=== PATIENT | male | born 1970 | race Caucasian/White ===

== ENCOUNTER 2019-12-04 08:53 | Emergency (ER) | payer MEDICAID ==
--- NOTE | 2019-12-04 09:36 | ED ---
Extremity Problem HPI - General Source: patient Mode of arrival: ambulatory Limitations: no limitations <Vladislav Mir - Last Filed: 12/04/19 10:52> <Lalita Carmichael - Last Filed: 12/06/19 22:05> - General Chief complaint: Extremity Problem,Nontraumatic Stated complaint: Swollen left leg/foot Time Seen by Provider: 12/04/19 09:17 - History of Present Illness Initial comments: Patient is a 49-year-old male with history of diabetes presenting to emergency Department with a chief complaint of leg swelling. Patient reports he noticed mild leg swelling on his left lower sternal yesterday. He states he made sure to keep the foot elevated. He woke up this morning and states the swelling did not resolve. Patient does report some fullness near his toes. Patient denies diabetic neuropathy and gets regular checks. Patient denies any trauma to the region. Denies shortness of breath, chest pain or hemoptysis. Patient denies hematologic conditions. (Vladislav Mir) - Related Data Home Medications Medication Instructions Recorded Confirmed Pioglitazone [Actos] 15 mg PO DAILY 10/19/19 10/19/19 metFORMIN HCL [Glucophage] 1,000 mg PO BID 10/19/19 10/19/19 Previous Rx's Medication Instructions Recorded Metoclopramide [Reglan] 10 mg PO ACHS #10 tab 07/05/15 Allergies Allergy/AdvReac Type Severity Reaction Status Date / Time No Known Allergies Allergy Verified 12/04/19 08:57 Review of Systems ROS Other: All systems not noted in ROS Statement are negative. <Vladislav Mir - Last Filed: 12/04/19 10:52> ROS Other: All systems not noted in ROS Statement are negative. <Lalita Carmichael - Last Filed: 12/06/19 22:05> ROS Statement: Those systems with pertinent positive or pertinent negative responses have been documented in the HPI. Past Medical History Past Medical History: Diabetes Mellitus, Hyperlipidemia, Hypertension History of Any Multi-Drug Resistant Organisms: None Reported Past Surgical History: No Surgical Hx Reported Past Psychological History: No Psychological Hx Reported Smoking Status: Former smoker Past Alcohol Use History: Rare Past Drug Use History: None Reported <Vladislav Mir - Last Filed: 12/04/19 10:52> General Exam Limitations: no limitations General appearance: alert, in no apparent distress Head exam: Present: atraumatic, normocephalic, normal inspection Eye exam: Present: normal appearance, PERRL, EOMI Pupils: Present: normal accommodation ENT exam: Present: normal exam, mucous membranes moist Neck exam: Present: normal inspection, full ROM Respiratory exam: Present: normal lung sounds bilaterally Cardiovascular Exam: Present: regular rate, normal rhythm, normal heart sounds Extremities exam: Present: full ROM, normal capillary refill, pedal edema (+1 nonpitting edema left lower extremity.), calf tenderness (Very mild tenderness), other (+2 dorsalis pedis and posterior tibialis bilaterally.). Absent: normal inspection (Left-sided leg swelling. No trauma to the region. No erythema or skin discoloration.), tenderness Back exam: Present: normal inspection, full ROM Neurological exam: Present: alert, oriented X3 Psychiatric exam: Present: normal affect, normal mood Skin exam: Present: warm, dry, intact, normal color <Vladislav Mir - Last Filed: 12/04/19 10:52> Course Vital Signs 12/04/19 12/04/19 08:58 10:38 Temperature 98.1 F 98.0 F Pulse Rate 89 77 Respiratory 18 16 Rate Blood Pressure 149/95 124/87 O2 Sat by Pulse 100 99 Oximetry Medical Decision Making <Vladislav Mir - Last Filed: 12/04/19 10:52> <Lalita Carmichael - Last Filed: 12/06/19 22:05> - Medical Decision Making Patient is a 49-year-old male with type 2 diabetes presenting to emergency Department with chief complaint of leg swelling. Patient is otherwise a healthy person. No ciliary changes on the left thoracotomy. +1 nonpitting edema. No trauma to the region. Patient does stand for prolonged periods of time at his job. Doppler ultrasound left lower extremity is negative for DVT. Patient advised to keep leg elevated above heart level and wear compression stockings. Patient denies hematologic conditions. No chest pain, shortness of breath or he moptysis. Patient advised to obtain a repeat ultrasound in 1 week. He was advised to follow up primary care. Strict return parameters were thoroughly discussed the patient was understanding and agreeable. Case discussed with physician. (Vladislav Mir) I was available for consultation in the emergency department. The history and physical exam were done by the midlevel provider. I was consulted for this patients care. I reviewed the case with the midlevel provider and based on their presentation of the patient, I agree with the assessment, medical decision making and plan of care as documented. Chart was dictated using [employer] dictation software. Attempts were made to correct any dictation errors however some typographical errors may persist. (Lalita Carmichael) Disposition Is patient prescribed a controlled substance at d/c from ED?: No Time of Disposition: 10:56 <Vladislav Mir - Last Filed: 12/04/19 10:52> <Lalita Carmichael - Last Filed: 12/06/19 22:05> Clinical Impression: Swelling of lower extremity Disposition: HOME SELF-CARE Condition: Stable Instructions (If sedation given, give patient instructions): Leg Edema (ED) Additional Instructions: Please follow up with primary care. Obtain a repeat ultrasound in 1 week. Return to emergency department if symptoms worsen. Referrals: Rocio Watson MD [Primary Care Provider] - 1-2 days
--- NOTE | 2019-12-04 10:20 | US ---
EXAMINATION TYPE: US venous doppler duplex LE LT DATE OF EXAM: 12/04/2019 9:30 AM COMPARISON: NONE CLINICAL HISTORY: unilat swelling. SIDE PERFORMED: Left TECHNIQUE: The lower extremity deep venous system is examined utilizing real time linear array sonog dolly with graded compression, doppler sonography and color-flow sonography. VESSELS IMAGED: External Iliac Vein (EIV) Common Femoral Vein Deep Femoral Vein Greater Saphenous Vein * Femoral Vein Popliteal Vein Small Saphenous Vein * Proximal Calf Veins (* superficial vessels) There is normal flow, compressibility, vascular waveforms. Left Leg: Negative for DVT IMPRESSION: No evident deep venous thrombosis at or above the left knee
[2019-12-04 10:39] VITALS: BP 124/87; PULSE 77; RESP 16; TEMP 98
== END 2019-12-04 11:05 | disposition home or self-care (01) ==
LOC: EC 08:53
DX: M79.89 Other specified soft tissue disorders (principal); E11.9 Type 2 diabetes mellitus without complications; Z87.891 Personal history of nicotine dependence; Z79.84 Long term (current) use of oral hypoglycemic drugs
CPT/HCPCS: 99283

== ENCOUNTER → 2020-09-06 | Outpatient (CLI) | payer MEDICAID ==
--- NOTE | 2020-09-06 10:07 | US ---
EXAMINATION TYPE: US venous doppler duplex LE DATE OF EXAM: 09/06/2020 8:50 AM COMPARISON: US 2019 CLINICAL HISTORY: 50-year-old male R22.43 SWELLING OF BOTH LOWER LEGS, E11.65 TYPE II DIABETES. Bilat eral leg swelling x couple months SIDE PERFORMED: Bilateral TECHNIQUE: The lower extremity deep venous system is examined utilizing real time linear array sonog dolly with graded compression, doppler sonography and color-flow sonography. FINDINGS: VESSELS IMAGED: External Iliac Vein (EIV) Common Femoral Vein Deep Femoral Vein Greater Saphenous Vein * Femoral Vein Popliteal Vein Small Saphenous Vein * Proximal Calf Veins (* superficial vessels) Right Leg: Appears negative for DVT Left Leg: Appears negative for DVT IMPRESSION: No evidence for DVT within the bilateral lower extremities imaged from the groin to the upper calves.
== END | disposition home or self-care (01) ==
LOC: RADUSWWP 08:19
PROVIDERS: ATTEND Family Medicine
DX: R22.43 Localized swelling, mass and lump, lower limb, bilateral (principal); L81.9 Disorder of pigmentation, unspecified; E11.65 Type 2 diabetes mellitus with hyperglycemia
CPT/HCPCS: 93923; 93970

== ENCOUNTER 2022-09-03 15:49 | Emergency (ER) | payer MEDICAID ==
[2022-09-03 16:04] VITALS: RESP 16; TEMP 98
[2022-09-03 16:54] LABS: Basophils # (A) 0.1 k/uL (0-0.2); Basophils % (A) 0 %; Eosinophils # (A) 0.1 k/uL (0-0.7); Eosinophils % (A) 1 %; HCT 43.9 % (39.0-53.0); HGB 15.1 gm/dL (13.0-17.5); Lymphocytes # (A) 2.2 k/uL (1.0-4.8); Lymphocytes % (A) 20 %; MCH 31.6 pg (25.0-35.0); MCHC 34.3 g/dL (31.0-37.0); MCV 92.1 fL (80.0-100.0); Mean Platelet Volume 7.9; Monocytes # (A) 0.3 k/uL (0-1.0); Monocytes % (A) 3 %; Neutrophils # (A) 8.2 k/uL (1.3-7.7); Neutrophils % (A) 75 %; Platelet Count 196 k/uL (150-450); RBC 4.77 m/uL (4.30-5.90); RDW 13.2 % (11.5-15.5)
[2022-09-03 17:07] LABS: ALT 16 U/L (4-49); AST 19 U/L (17-59); African American GFR (CKD) >90 (>60 ml/min/1.73 sqM); Albumin 3.9 g/dL (3.5-5.0); Alkaline Phosphatase 57 U/L (38-126); Amylase 53 U/L (30-110); Anion Gap 11 mmol/L; Blood Urea Nitrogen 15 mg/dL (9-20); Calcium 9.1 mg/dL (8.4-10.2); Carbon Dioxide 25 mmol/L (22-30); Chloride 100 mmol/L (98-107); Glucose 257 mg/dL (74-99); Lipase 25 U/L (23-300); Non-African American GFR(CKD) >90 (>60 ml/min/1.73 sqM); Sodium 136 mmol/L (137-145); Total Bilirubin 0.5 mg/dL (0.2-1.3); Total Protein 6.5 g/dL (6.3-8.2)
[2022-09-03 17:11] LABS: Appearance,Urine Clear (Clear); Bilirubin,Urine Negative (Negative); Blood,Urine Negative (Negative); Color,Urine Yellow; Glucose,Urine (UA) 4+ (Negative); Ketones,Urine Negative (Negative); Leukocyte Esterase,Urine Negative (Negative); Nitrite,Urine Negative (Negative); PH, Urine 5.5 (5.0-8.0); Protein,Urine Negative (Negative); Specific Gravity,Urine 1.016 (1.001-1.035)
--- NOTE | 2022-09-03 17:37 | XR ---
KUB HISTORY: Abdominal pain Frontal KUB on 2 images correlated prior exam 07/05/2015 Lung bases are clear. There is no evident bowel obstruction or pneumoperitoneum. No pathologic calcif ication is evident, probable phleboliths in the pelvis. Bone mineralization is normal. There are some air-fluid levels without bowel distention. IMPRESSION: Findings could represent enteritis or ileus, follow-up as indicated.
[2022-09-03] MEDS ORDERED: KETOROLAC 15 MG/ML 1 ML VIAL IM STA (17:49)
--- NOTE | 2022-09-03 17:55 | ED ---
Abdominal Pain HPI - General Chief Complaint: Abdominal Pain Stated Complaint: Lower back pain Time Seen by Provider: 09/03/22 17:43 Source: patient, RN notes reviewed Mode of arrival: ambulatory Limitations: no limitations - History of Present Illness Initial Comments: Patient is a pleasant 52-year-old male presenting to the emergency room with complaints of right upper flank pain in the area of his lower rib cage. He reports symptoms similar and ongoing for 1 week and have become severe enough that he was unable to tolerate the symptoms any further. He denies any associated symptoms with the pain including any chest pain, shortness of breath, cough, nausea, vomiting, diarrhea, constipation, hematuria, dysuria, urinary frequency, fevers or chills. He denies any injuries or range of motion impairment. He has a past medical history significant for diabetes, hypertension, and hyperlipidemia. - Related Data Home Medications Medication Instructions Recorded Confirmed Pioglitazone [Actos] 15 mg PO DAILY 10/19/19 10/19/19 metFORMIN HCL [Glucophage] 1,000 mg PO BID 10/19/19 10/19/19 Previous Rx's Medication Instructions Recorded Metoclopramide [Reglan] 10 mg PO ACHS #10 tab 07/05/15 Cyclobenzaprine [Flexeril] 10 mg PO TID #12 tab 06/13/20 Ibuprofen [Motrin] 600 mg PO Q6HR PRN #20 tab 06/13/20 Allergies Allergy/AdvReac Type Severity Reaction Status Date / Time No Known Allergies Allergy Verified 09/03/22 16:04 Review of Systems ROS Statement: Those systems with pertinent positive or pertinent negative responses have been documented in the HPI. ROS Other: All systems not noted in ROS Statement are negative. Past Medical History Past Medical History: Diabetes Mellitus, Hyperlipidemia, Hypertension History of Any Multi-Drug Resistant Organisms: None Reported Past Surgical History: No Surgical Hx Reported Past Psychological History: No Psychological Hx Reported Smoking Status: Current every day smoker Past Alcohol Use History: Rare Past Drug Use History: None Reported General Exam Limitations: no limitations General appearance: alert, in no apparent distress Head exam: Present: atraumatic, normocephalic, normal inspection Eye exam: Present: normal appearance, PERRL, EOMI. Absent: scleral icterus, conjunctival injection, periorbital swelling ENT exam: Present: normal exam, mucous membranes moist Neck exam: Present: normal inspection. Absent: lymphadenopathy Respiratory exam: Present: normal lung sounds bilaterally. Absent: respiratory distress, wheezes, rales, rhonchi, stridor Cardiovascular Exam: Present: regular rate, normal rhythm, normal heart sounds. Absent: systolic murmur, diastolic murmur, rubs, gallop, clicks GI/Abdominal exam: Present: soft, tenderness (RUQ), normal bowel sounds. A bsent: distended, guarding, rebound, rigid, organomegaly, mass Rectal exam: Present: deferred Extremities exam: Present: normal inspection Back exam: Present: normal inspection. Absent: CVA tenderness (R), CVA tenderness (L) Neurological exam: Present: alert, oriented X3, CN II-XII intact Psychiatric exam: Present: normal affect, normal mood Skin exam: Present: warm, dry, intact, normal color. Absent: rash Course Vital Signs 09/03/22 09/03/22 16:01 18:44 Temperature 98 F Pulse Rate 80 65 Respiratory 16 16 Rate Blood Pressure 151/100 137/97 O2 Sat by Pulse 99 100 Oximetry Medical Decision Making - Medical Decision Making 52-year-old male presenting to the emergency room with right upper flank pain at the upper limits of the costal vertebral angle. Right upper quadrant tenderness noted. In triage KUB, CBC, CMP, amylase, lipase and urinalysis ordered. Will give Toradol for pain. KUB findings showed some air fluid levels without bowel distention which could represent enteritis or ileus and follow-up as indicated. Computed tomography scan of the abdomen without contrast was ordered. CBC shows mild leukocytosis at 11.0 no other anomalies. CMP revealed slightly low sodium at 136 and elevated glucose at 257. Urinalysis overall was negative with the exception of plus for glucose. Pain improved with Toradol. Computed tomography scan shows enteritis and cholelithiasis. Will discharge home. Education regarding cholelithiasis reviewed. Return parameters to the emergency room reviewed at length. Case discussed with Dr. Carmichael. - Lab Data Result diagrams: 09/03/22 16:31 09/03/22 16:31 Lab Results 09/03/22 09/03/22 09/03/22 Range/Units 16:31 16:31 16:31 WBC 11.0 H (3.8-10.6) k/uL RBC 4.77 (4.30-5.90) m/uL Hgb 15.1 (13.0-17.5) gm/dL Hct 43.9 (39.0-53.0) % MCV 92.1 (80.0-100.0) fL MCH 31.6 (25.0-35.0) pg MCHC 34.3 (31.0-37.0) g/dL RDW 13.2 (11.5-15.5) % Plt Count 196 (150-450) k/uL MPV 7.9 Neutrophils % 75 % Lymphocytes % 20 % Monocytes % 3 % Eosinophils % 1 % Basophils % 0 % Neutrophils # 8.2 H (1.3-7.7) k/uL Lymphocytes # 2.2 (1.0-4.8) k/uL Monocytes # 0.3 (0-1.0) k/uL Eosinophils # 0.1 (0-0.7) k/uL Basophils # 0.1 (0-0.2) k/uL Sodium 136 L (137-145) mmol/L Potassium 4.0 (3.5-5.1) mmol/L Chloride 100 (98-107) mmol/L Carbon Dioxide 25 (22-30) mmol/L Anion Gap 11 mmol/L BUN 15 (9-20) mg/dL Creatinine 0.57 L (0.66-1.25) mg/dL Est GFR (CKD-EPI)AfAm >90 (>60 ml/min/1.73 sqM) Est GFR (CKD-EPI)NonAf >90 (>60 ml/min/1.73 sqM) Glucose 257 H (74-99) mg/dL Calcium 9.1 (8.4-10.2) mg/dL Total Bilirubin 0.5 (0.2-1.3) mg/dL AST 19 (17-59) U/L ALT 16 (4-49) U/L Alkaline Phosphatase 57 (38-126) U/L Troponin I <0.012 (0.000-0.034) ng/mL Total Protein 6.5 (6.3-8.2) g/dL Albumin 3.9 (3.5-5.0) g/dL Amylase 53 (30-110) U/L Lipase 25 (23-300) U/L Urine Color Urine Appearance (Clear) Urine pH (5.0-8.0) Ur Specific [place] (1.001-1.035) Urine Protein (Negative) Urine Glucose (UA) (Negative) Urine Ketones (Negative) Urine Blood (Negative) Urine Nitrite (Negative) Urine Bilirubin (Negative) Urine Urobilinogen (<2.0) mg/dL Ur Leukocyte Esterase (Negative) 09/03/22 Range/Units 16:50 WBC (3.8-10.6) k/uL RBC (4.30-5.90) m/uL Hgb (13.0-17.5) gm/dL Hct (39.0-53.0) % MCV (80.0-100.0) fL MCH (25.0-35.0) pg MCHC (31.0-37.0) g/dL RDW (11.5-15.5) % Plt Count (150-450) k/uL MPV Neutrophils % % Lymphocytes % % Monocytes % % Eosinophils % % Basophils % % Neutrophils # (1.3-7.7) k/uL Lymphocytes # (1.0-4.8) k/uL Monocytes # (0-1.0) k/uL Eosinophils # (0-0.7) k/uL Basophils # (0-0.2) k/uL Sodium (137-145) mmol/L Potassium (3.5-5.1) mmol/L Chloride (98-107) mmol/L Carbon Dioxide (22-30) mmol/L Anion Gap mmol/L BUN (9-20) mg/dL Creatinine (0.66-1.25) mg/dL Est GFR (CKD-EPI)AfAm (>60 ml/min/1.73 sqM) Est GFR (CKD-EPI)NonAf (>60 ml/min/1.73 sqM) Glucose (74-99) mg/dL Calcium (8.4-10.2) mg/dL Total Bilirubin (0.2-1.3) mg/dL AST (17-59) U/L ALT (4-49) U/L Alkaline Phosphatase (38-126) U/L Troponin I (0.000-0.034) ng/mL Total Protein (6.3-8.2) g/dL Albumin (3.5-5.0) g/dL Amylase (30-110) U/L Lipase (23-300) U/L Urine Color Yellow Urine Appearance Clear (Clear) Urine pH 5.5 (5.0-8.0) Ur Specific [place] 1.016 (1.001-1.035) Urine Protein Negative (Negative) Urine Glucose (UA) 4+ H (Negative) Urine Ketones Negative (Negative) Urine Blood Negative (Negative) Urine Nitrite Negative (Negative) Urine Bilirubin Negative (Negative) Urine Urobilinogen 2.0 (<2.0) mg/dL Ur Leukocyte Esterase Negative (Negative) - Radiology Data Radiology results: report reviewed, image reviewed KUB shows probable phleboliths in the pelvis. Normal bone mineralization. Some air-fluid levels without bowel dilation patient, findings could represent enteritis or ileus follow-up is recommended. CT the abdomen and pelvis impression correlate for enteritis and cholelithiasis, liver gallbladder dependent high attenuation within the gallbladder consistent with gallstones. Bowel shows between small bowel loops no free air is visible. Disposition Clinical Impression: Enteritis, Cholelithiasis without obstruction Disposition: HOME SELF-CARE Condition: Stable Instructions (If sedation given, give patient instructions): Gastroenteritis (ED), Gallstones (ED), Low Fat Diet (ED) Additional Instructions: Please follow-up with your primary care provider. Low-fat diet is recommended. Please take Tylenol or ibuprofen as needed for pain. Please return to the Emergency Department if symptoms worsen or any other concerns. Is patient prescribed a controlled substance at d/c from ED?: No Referrals: Rocio Watson MD [STAFF PHYSICIAN] - 1-2 days Time of Disposition: 19:37
--- NOTE | 2022-09-03 18:25 | CT ---
EXAMINATION TYPE: CT abdomen pelvis wo con DATE OF EXAM: 09/03/2022 COMPARISON: CT 06/13/2020 HISTORY: right flank pain CT DLP: 433.8 mGycm Automated exposure control for dose reduction was used. TECHNIQUE: Helical acquisition of images from the lung bases through the pelvis. FINDINGS: Lack of intravenous contrast could N sensitivity of the exam. LUNG BASES: No significant abnormality is appreciated. AORTA: No significant abnormality is appreciataed. LIVER/GB: Dependent high attenuation within the gallbladder is consistent with gallstone. Liver shows no mass. PANCREAS: No significant abnormality is seen. SPLEEN: No significant abnormality is seen. ADRENALS: No significant abnormality is seen. KIDNEYS: Suspect changes of medullary sponge kidney. No evident hydronephrosis or ureteral calculus. REPRODUCTIVE ORGANS: Prostate is enlarged. URINARY BLADDER: Not distended, wall thickening could be due to chronic outlet obstruction, lack of distention, correlate to exclude cystitis. Multiple phleboliths are present within the pelvis. BOWEL: Thickened small bowel loops are noted. FREE AIR: No Free Air is visible. ASCITES: None visible. PELVIC ADENOPATHY: None visualized. RETROPERITONEAL ADENOPATHY: No Retroperitoneal Adenopathy visible. OSSEOUS STRUCTURES: Degenerative disc changes are present visualized spine.. IMPRESSION: CORRELATE FOR ENTERITIS. NONCONTRAST EXAM. CHOLELITHIASIS. ADDITIONAL NONSPECIFIC FINDINGS ABOVE.
[2022-09-03 18:45] VITALS: BP 137/97; PULSE 65
== END 2022-09-03 19:40 | disposition home or self-care (01) ==
LOC: EC 15:49
DX: K80.20 Calculus of gallbladder without cholecystitis without obstruction (principal); K52.9 Noninfective gastroenteritis and colitis, unspecified; E11.9 Type 2 diabetes mellitus without complications; E78.5 Hyperlipidemia, unspecified; I10 Essential (primary) hypertension; Z79.84 Long term (current) use of oral hypoglycemic drugs; F17.200 Nicotine dependence, unspecified, uncomplicated
CPT/HCPCS: 80053; 82150; 83690; 84484; 85025; 74018; 74176; 99284; 96372; J1885; 36415; 81003

== ENCOUNTER → 2022-09-05 | Outpatient (CLI) | payer MEDICAID ==
[2022-09-05 18:01] LABS: ALT 14 U/L (10-49); AST 13 U/L (14-35); African American GFR (CKD) 120.7 (60.0-200.0); Albumin 4.2 g/dL (3.8-4.9); Albumin/Globulin Ratio 1.68 (1.60-3.17); Alkaline Phosphatase 67 U/L (41-126); BUN/Creat Ratio 14.38 Ratio (12.00-20.00); Blood Urea Nitrogen 11.5 mg/dL (9.0-27.0); Calcium 9.3 mg/dL (8.7-10.3); Carbon Dioxide 29.1 mmol/L (20.0-27.5); Chloride 103 mmol/L (96-109); Chol/HDL Ratio 3.54 Ratio; Globulin 2.5 g/dL (1.6-3.3); Glucose 295 mg/dL (70-110); LDL Cholesterol,Calculated 106.2 mg/dL (0.0-131.0); Non-African American GFR(CKD) 104.2 (60.0-200.0); Potassium 4.6 mmol/L (3.5-5.5); Sodium 139 mmol/L (135-145); Total Bilirubin <0.15 mg/dL (0.30-1.20); Total Protein 6.7 g/dL (6.2-8.2)
[2022-09-06 09:54] LABS: C-Peptide 1.33 ng/mL (0.81-3.85)
== END | disposition home or self-care (01) ==
LOC: LABWHC1 10:37
PROVIDERS: ATTEND Internal Medicine
DX: E11.65 Type 2 diabetes mellitus with hyperglycemia (principal); E78.5 Hyperlipidemia, unspecified
CPT/HCPCS: 36415; 80053; 80061; 82043; 82570; 83036; 84681

== ENCOUNTER → 2023-05-10 | Outpatient (CLI) | payer MEDICAID ==
[2023-05-10 11:21] LABS: Microalbumin Creatinine Ratio <12 mg/g Cr (0-30); Urine Creatinine 97.8 mg/dL (39.0-259.0)
[2023-05-10 11:33] LABS: ALT 16 U/L (10-49); AST 15 U/L (14-35); Albumin 4.1 d/dL (3.8-4.9); Albumin/Globulin Ratio 1.64 Ratio (1.60-3.17); Alkaline Phosphatase 67 U/L (41-126); Blood Urea Nitrogen 12.4 mg/dL (9.0-27.0); Carbon Dioxide 28.9 mmol/L (21.6-31.8); Chloride 102 mmol/L (96-109); Chol/HDL Ratio 3.31 Ratio; Globulin 2.5 d/dL (1.6-3.3); Glucose 314 mg/dL (70-110); LDL Cholesterol,Calculated 123.1 mg/dL (0.0-131.0); Sodium 138 mmol/L (135-145); Total Bilirubin 0.3 mg/dL (0.3-1.2); Total Protein 6.6 d/dL (6.2-8.2); VLDL Calculation 17.22 mg/dL (5.00-40.00)
== END | disposition home or self-care (01) ==
LOC: LABWHC1 07:35
PROVIDERS: ATTEND Internal Medicine
DX: E11.65 Type 2 diabetes mellitus with hyperglycemia (principal)
CPT/HCPCS: 36415; 80053; 80061; 82043; 82570; 83036

== ENCOUNTER → 2024-08-25 | Outpatient (CLI) | payer MEDICAID ==
[2024-08-25 18:30] LABS: ALT 9 U/L (10-49); AST 13 U/L (14-35); Albumin/Globulin Ratio 1.54 Ratio (1.60-3.17); Alkaline Phosphatase 80 U/L (41-126); Calcium 9.5 mg/dL (8.7-10.3); Carbon Dioxide 29.4 mmol/L (21.6-31.8); Chloride 104 mmol/L (96-109); Chol/HDL Ratio 3.46 Ratio; Globulin 2.6 g/dL (1.6-3.3); Glucose 146 mg/dL (70-110); LDL Cholesterol,Calculated 108.5 mg/dL (0.0-131.0); Potassium 4.7 mmol/L (3.5-5.5); Sodium 140 mmol/L (135-145); Total Bilirubin 0.3 mg/dL (0.3-1.2); Total Protein 6.6 g/dL (6.2-8.2); VLDL Calculation 17.36 mg/dL (5.00-40.00)
== END | disposition home or self-care (01) ==
LOC: LABWHC1 13:22
PROVIDERS: ATTEND Internal Medicine
CPT/HCPCS: 36415; 80053; 80061; 82043; 82570; 83036

== ENCOUNTER → 2025-05-30 | Outpatient (CLI) | payer BC ==
[2025-05-30 20:29] LABS: ALT 14 U/L (10-49); AST 16 U/L (14-35); Albumin 4.3 g/dL (3.8-4.9); Albumin/Globulin Ratio 1.39 Ratio (1.60-3.17); Alkaline Phosphatase 84 U/L (41-126); Anion Gap 11.80 mmol/L (4.00-12.00); BUN/Creat Ratio 17.00 Ratio (12.00-20.00); Blood Urea Nitrogen 13.6 mg/dL (9.0-27.0); Calcium 9.4 mg/dL (8.7-10.3); Carbon Dioxide 25.2 mmol/L (21.6-31.8); Chloride 102 mmol/L (96-109); Cholesterol 197.00 mg/dL (0.00-200.00); Globulin 3.1 g/dL (1.6-3.3); Glucose 304 mg/dL (70-110); HDL Cholesterol 53.50 mg/dL (40.00-60.00); LDL Cholesterol,Calculated 126.6 mg/dL (0.0-131.0); Potassium 4.4 mmol/L (3.5-5.5); Sodium 139 mmol/L (135-145); Total Protein 7.4 g/dL (6.2-8.2); Triglycerides 84.50 mg/dL (0.00-149.00); VLDL Calculation 16.90 mg/dL (5.00-40.00)
== END | disposition home or self-care (01) ==
LOC: LABWHC1 14:21
PROVIDERS: ATTEND Internal Medicine
DX: E10.65 Type 1 diabetes mellitus with hyperglycemia (principal)
CPT/HCPCS: 36415; 80053; 80061; 82043; 82570; 83036